=== PATIENT | female | born 1975 | race Caucasian/White ===

== ENCOUNTER 2018-12-01 11:31 | Emergency (ER) | payer BC, OTHER ==
--- NOTE | 2018-12-01 12:10 | EKG ---
Test Date: 2018-12-01 Test Time: 11:42:33 Ton Cylinder Inspector: ANTOINETTE MEASUREMENT RESULTS: Intervals: Rate: 86 WI: 142 QRSD: 80 QT: 360 QTc: 430 [place]: P: 20 WI: 142 QRS: -6 T: 15 INTERPRETIVE STATEMENTS: Normal sinus rhythm Possible Anterior infarct, age undetermined Abnormal ECG No previous ECG available for comparison Electronically Signed On 12-01-18 12:09:59 CDT by Gagan Hernandez
[2018-12-01] MEDS ORDERED: FOLIC ACID 5 MG/ML VIAL ONE (12:24)
[2018-12-01] MEDS ORDERED: NA CHLORIDE 0.9% 2,000 ML ONE (12:24)
[2018-12-01] MEDS ORDERED: NA CHLORIDE 0.9% 1,000 ML ONE (12:45)
--- NOTE | 2018-12-01 12:56 | RAD REPORT ---
EXAM DESCRIPTION: MRI - Brain Wo Cont - 12/01/2018 12:41 pm CLINICAL HISTORY: DIZZINESS, bilateral leg weakness and numbness, right arm numbness onset today COMPARISON: None. TECHNIQUE: Sagittal T1-weighted images were obtained along with axial PD, heavily T2-weighted and T2 -FLAIR images. Axial DWI and ADC mapping sequences were also obtained along with coronal heavily T2-w eighted images. Sagittal thin section 3D FLAIR sequencing performed. FINDINGS: No intracranial hemorrhage, mass or acute infarction. There is no edema or shift of midlin e structures. No extra-axial fluid collections. Bonilla-matter/white matter junction is preserved. Signa l voids are seen as a normal finding in the major intracranial vessels. No white matter signal abnorm ality seen to suspect MS, infarction or other acute intracranial process. No sella or supra sella abnormality. No globe or orbital content suspicious finding. Paranasal sinuses are clear. There may be a small amount of fluid in the mastoid air cells. No gross middle ear abnormality seen though this standard MR brain protocol study limits middle ear assessment . IMPRESSION: Negative non-contrast MRI of the Brain. No evidence for infarction, MS or other acute i ntracranial finding. Questionable minimal minimal fluid in the mastoid air cells. Middle ear assessment is limited on this examination.
[2018-12-01 13:17] LABS: Absolute Lymphocytes (CBC) 1.5 K/uL (0.7-4.9); Basophils % 0.7 % (0-1.3); Hematocrit 40.2 % (36.0-45.0); Lymphocytes % 28.3 % (15.3-44.8); MPV 9.7 fL (7.6-11.3); RBC Red Blood Cell Count 4.49 M/uL (3.86-4.86)
[2018-12-01 13:23] LABS: Protime INR 0.98
--- NOTE | 2018-12-01 13:31 | RAD REPORT ---
EXAM DESCRIPTION: RAD - Chest Single View - 12/01/2018 1:24 pm CLINICAL HISTORY: COUGH Chest pain. COMPARISON: No comparisons FINDINGS: Portable technique limits examination quality. The lungs are grossly clear. The heart is upper limit of normal in size. No displaced fractures. IMPRESSION: No acute intrathoracic process suspected.
[2018-12-01 13:44] LABS: ALT/SGPT 28 U/L (12-78); AST/SGOT 13 U/L (15-37); Albumin 4.3 g/dL (3.4-5.0); Alkaline Phosphatase 60 U/L (45-117); BUN Blood Urea Nitrogen 8 mg/dL (7-18); Bicarbonate 25 mmol/L (21-32); Bilirubin Direct < 0.1 mg/dL (0-0.2); Bilirubin Total 0.3 mg/dL (0.2-1.0); Glucose Level 89 mg/dL (74-106); Lipase 87 U/L (73-393); Magnesium 2.4 mg/dL (1.8-2.4); NT PRO-BNP 27 pg/mL (<125); Protein, Total 7.8 g/dL (6.4-8.2); Sodium Level 141 mmol/L (136-145); Troponin (Emerg Dept Use Only) < 0.02 ng/mL (0.0-0.045)
[2018-12-01] MEDS ORDERED: ASPIRIN EC 81 MG TAB PO ONE (14:28)
--- NOTE | 2018-12-01 14:28 | ER ---
Nurse's Notes [facility] Name: Cally Abbasi Age: 43 yrs Sex: Female : 1975 Arrival Date: 12/01/2018 Time: 11:32 Bed 23 Private MD: Diagnosis: Weakness;Anxiety disorder, unspecified Presentation: 12/01 11:35 Presenting complaint: Patient states: starting Friday both of my legs were getting tw2 numb, then today my right arm is numb, i have been under a lot of stress so its probably that, Dr. Larson sent me over here he called Dr. Almendarez, they gave me 81mg ASA in their office. Transition of care: patient was not received from another setting of care. Onset of symptoms was December 01, 2018. Risk Assessment: Do you want to hurt yourself or someone else? Patient reports no desire to harm self or others. Initial Sepsis Screen: Does the patient meet any 2 criteria? No. Patient's initial sepsis screen is negative. Does the patient have a suspected source of infection? No. Patient's initial sepsis screen is negative. Care prior to arrival: None. 11:35 Method Of Arrival: Ambulatory tw2 11:35 Acuity: LATISHA 3 tw2 Triage Assessment: 11:38 General: Appears in no apparent distress. obese, well groomed, Behavior is calm, tw2 cooperative, appropriate for age. Pain: Denies pain. 11:39 Neuro: Reports headache frontal area, numbness in right arm weakness in right leg and tw2 left leg since last week. 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 - Social history:: Smoking status: . - Ebola Screening: : Patient denies travel to an Ebola-affected area in the 21 days before illness onset. - Family history:: not pertinent. Screenin:58 Abuse screen: Denies threats or abuse. Denies injuries from another. Nutritional ca1 screening: No deficits noted. Tuberculosis screening: No symptoms or risk factors identified. Fall Risk IV access (20 points). Assessment: 11:43 VAN Scoring: Arm Drift: Patients demonstrates NO arm weakness. Patient is VAN Negative. tw2 Visual Disturbance: No visual disturbance noted. Aphasia: No aphasia noted. Neglect: No neglect noted. 11:58 General: Appears in no apparent distress. comfortable, Behavior is calm, cooperative, ca1 appropriate for age. Pain: Complains of pain in face and scalp Pain currently is 4 out of 10 on a pain scale. Is continuous. Neuro: Level of Consciousness is awake, alert, obeys commands, Oriented to person, place, time, situation, Appropriate for age Cover Mat Machine Operator are equal bilaterally Moves all extremities. Gait is steady, Speech is normal, Facial symmetry appears normal, Reports numbness in right leg and left leg and right arm. Cardiovascular: Heart tones S1 S2 present Capillary refill < 3 seconds Patient's skin is warm and dry. Rhythm is sinus rhythm. Respiratory: Airway is patent Respiratory effort is even, unlabored, Respiratory pattern is regular, symmetrical, Breath sounds are clear bilaterally. GI: Abdomen is round non-distended, Bowel sounds present X 4 quads. Abd is soft and non tender X 4 quads. Reports nausea. : No deficits noted. No signs and/or symptoms were reported regarding the genitourinary system. EENT: No deficits noted. No signs and/or symptoms were reported regarding the EENT system. Derm: Skin is intact, is healthy with good turgor, Skin is pink, warm \T\ dry. Musculoskeletal: Circulation, motion, and sensation intact. Capillary refill < 3 seconds, Range of motion: intact in all extremities. 13:08 Reassessment: Patient appears in no apparent distress at this time. Patient and/or ca1 family updated on plan of care and expected duration. Pain level reassessed. Patient is alert, oriented x 3, equal unlabored respirations, skin warm/dry/pink. 14:02 Reassessment: Patient appears in no apparent distress at this time. Patient and/or ca1 family updated on plan of care and expected duration. Pain level reassessed. Patient is alert, oriented x 3, equal unlabored respirations, skin warm/dry/pink. 14:57 Reassessment: Patient appears in no apparent distress at this time. Patient is alert, ca1 oriented x 3, equal unlabored respirations, skin warm/dry/pink. Vital Signs: 11:36 BP 132 / 89; Pulse 84; Resp 17; Temp 98.1(O); Pulse Ox 97% on R/A; Weight 95.25 kg (R); tw2 Height 5 ft. 4 in. (162.56 cm) (R); Pain 0/10; 12:55 BP 100 / 79; Pulse 72; Resp 17 S; Pulse Ox 98% on R/A; ca1 14:02 BP 121 / 75; Pulse 76; Resp 17 S; Pulse Ox 100% on R/A; ca1 14:57 BP 116 / 71; Pulse 72; Resp 17 S; Pulse Ox 98% on R/A; ca1 11:36 Body Mass Index 36.05 (95.25 kg, 162.56 cm) tw2 NIH Stroke Scale Scores: 12:05 NIHSS Score: 0 ca1 ED Course: 11:32 Patient arrived in ED. as 11:36 Triage completed. tw2 11:38 Arm band placed on. tw2 11:44 EKG completed in triage. Results shown to MD. tw2 11:44 EKG done, by technology infusion specialist. reviewed by Teddy Almendarez MD. jp3 11:47 Vashti Bradley, RN is Primary Nurse. ca1 11:48 Teddy Almendarez MD is Attending Physician. shruti 11:58 Patient has correct armband on for positive identification. Placed in gown. Bed in low ca1 position. Call light in reach. Side rails up X 1. manager monitoring on. Pulse ox on. NIBP on. Warm blanket given. 11:58 No provider procedures requiring assistance completed. ca1 12:22 Patient moved to MRI via wheelchair. ka 12:30 Brain Wo Cont In Process Unspecified. EDMS 13:00 Initial lab(s) drawn, by ED staff, sent to lab. Inserted saline lock: 20 gauge in right ca1 antecubital area, using aseptic technique. ,using aseptic technique. by LAUREL Shahid Blood collected. 13:24 XRAY Chest (1 view) In Process Unspecified. EDMS 13:30 IV discontinued, intact, bleeding controlled, No redness/swelling at site. Pressure jp3 dressing applied, IV DC'd due to IV sitting within vein valve. Medications would only run if finger was placed down on top of the vein. Patient OK'd having another IV placed. 13:45 Inserted saline lock: 22 gauge in left antecubital area, using aseptic technique. jp3 Patient maintains SpO2 saturation greater than 95% on room air. 14:27 Artemio Marin MD is Referral Physician. shruti 14:57 IV discontinued, intact, bleeding controlled, No redness/swelling at site. Pressure ca1 dressing applied. 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 ca1 Output: 14:30 Urine: 130ml; Total: 130ml. ca1 Outcome: 14:26 Discharge ordered by . shruti 14:58 Discharged to home ambulatory, with family. ca1 14:58 Condition: stable 14:58 Discharge instructions given to patient, Instructed on discharge instructions, follow up and referral plans. medication usage, Demonstrated understanding of instructions, follow-up care, medications, Prescriptions given X 2. 14:58 Patient left the ED. ca1 NIH Stroke Scale - NIH Stroke Score Date: 12/01/2018 Time: 12:05 Total Score = 0 1a. Level of Consciousness (LOC) - 0(Alert) 1b. Level of Consciousness (LOC) (Year \T\ Age) - 0(Both) 1c. LOC Commands (Open \T\ Closes Eyes/Police Superintendent) - 0(Both) 2. Best Gaze (Lateral Gaze Paresis) - 0(Normal) 3. Visual Field Loss - 0(No visual loss) 4. Facial Palsy - 0(Normal) 5a. Left Arm: Motor (10-second hold) - 0(No drift) 5b. Right Arm: Motor (10-second hold) - 0(No drift) 6a. Left Leg: Motor (5-second hold - always test supine) - 0(No drift) 6b. Right Leg: Motor (5-second hold - always test supine) - 0(No drift) 7. Limb Ataxia (finger/nose \T\ heel/marcial - test with eyes open) - 0(Absent) 8. Sensory Loss (pinprick arms/legs/face) - 0(Normal) 9. Best Language: Aphasia (description/naming/reading) - 0(No aphasia) 10. Dysarthria (speech clarity - read or repeat words) - 0(Normal) 11. Extinction and Inattention (visual/tactile/auditory/spatial/personal) - 0(No abnormality) Initials: ca1 Signatures: Dispatcher [employer] EDTeddy Nunes MD MD cha Martinez, Amelia as Aguilera, Kandace Choudhury RN RN tw2 Milton Cuevas jp3 Vashti Bradley RN RN ca1 Corrections: (The following items were deleted from the chart) 11:39 11:38 PMHx: Mineirs disease; tw2 tw2
--- NOTE | 2018-12-01 14:29 | EDPHYS ---
Physician Documentation [facility] Name: Cally Abbais Age: 43 yrs Sex: Female : 1975 Arrival Date: 12/01/2018 Time: 11:32 Bed 23 Private MD: LAUREL Physician Teddy Almendarez HPI: 12/01 13:06 This 43 yrs old Female presents to ER via Ambulatory with complaints of shruti Numbness Of Arm. 13:06 The patient or guardian complains of decreased range of motion, weakness. The shruti complaints affect the right bicep, dorsal aspect of right forearm, right tricep and palmar aspect of right forearm. Context: The problem was sustained at home. Onset: The symptoms/episode began/occurred 1 day(s) ago. Treatment prior to arrival includes: no previous treatment. Modifying factors: The symptoms are alleviated by nothing. the symptoms are aggravated by movement. Associated signs and symptoms: The patient has no apparent associated signs or symptoms. Severity of symptoms: At their worst the symptoms were mild, moderate, in the emergency department the symptoms are unchanged. The patient has not experienced similar symptoms in the past. 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 - Social history:: Smoking status: . - Ebola Screening: : Patient denies travel to an Ebola-affected area in the 21 days before illness onset. - Family history:: not pertinent. ROS: 13:06 Constitutional: Negative for fever, chills, and weight loss, Eyes: Negative for injury, shruti pain, redness, and discharge, ENT: Negative for injury, pain, and discharge, Neck: Negative for injury, pain, and swelling, Cardiovascular: Negative for chest pain, palpitations, and edema, Respiratory: Negative for shortness of breath, cough, wheezing, and pleuritic chest pain, Abdomen/GI: Negative for abdominal pain, nausea, vomiting, diarrhea, and constipation, Back: Negative for injury and pain, : Negative for injury, bleeding, discharge, and swelling, Skin: Negative for injury, rash, and discoloration, Psych: Negative for depression, anxiety, suicide ideation, homicidal ideation, and hallucinations, Allergy/Immunology: Negative for hives, rash, and allergies, Endocrine: Negative for neck swelling, polydipsia, polyuria, polyphagia, and marked weight changes, Hematologic/Lymphatic: Negative for swollen nodes, abnormal bleeding, and unusual bruising. 13:06 MS/extremity: Positive for paresthesias. Exam: 13:06 Constitutional: This is a well developed, well nourished patient who is awake, alert, shruti and in no acute distress. Head/Face: Normocephalic, atraumatic. Eyes: Pupils equal round and reactive to light, extra-ocular motions intact. Lids and lashes normal. Conjunctiva and sclera are non-icteric and not injected. Cornea within normal limits. Periorbital areas with no swelling, redness, or edema. ENT: Nares patent. No nasal discharge, no septal abnormalities noted. Tympanic membranes are normal and external auditory canals are clear. Oropharynx with no redness, swelling, or masses, exudates, or evidence of obstruction, uvula midline. Mucous membranes moist. Neck: Trachea midline, no thyromegaly or masses palpated, and no cervical lymphadenopathy. Supple, full range of motion without nuchal rigidity, or vertebral point tenderness. No Meningismus. Chest/axilla: Normal chest wall appearance and motion. Nontender with no deformity. No lesions are appreciated. Cardiovascular: Regular rate and rhythm with a normal S1 and S2. No gallops, murmurs, or rubs. Normal PMI, no JVD. No pulse deficits. Respiratory: Lungs have equal breath sounds bilaterally, clear to auscultation and percussion. No rales, rhonchi or wheezes noted. No increased work of breathing, no retractions or nasal flaring. Abdomen/GI: Soft, non-tender, with normal bowel sounds. No distension or tympany. No guarding or rebound. No evidence of tenderness throughout. Back: No spinal tenderness. No costovertebral tenderness. Full range of motion. Skin: Warm, dry with normal turgor. Normal color with no rashes, no lesions, and no evidence of cellulitis. Neuro: Awake and alert, GCS 15, oriented to person, place, time, and situation. Cranial nerves II-XII grossly intact. Motor strength 5/5 in all extremities. Sensory grossly intact. Cerebellar exam normal. Normal gait. Psych: Awake, alert, with orientation to person, place and time. Behavior, mood, and affect are within normal limits. 13:06 Musculoskeletal/extremity: Circulation is intact in all extremities. the right arm Compartment Syndrome exam of affected extremity: is normal. DVT Exam: No signs of deep vein thrombosis. no pain, no swelling, no tenderness, negative Homans' sign noted on exam, no appreciated bluish discoloration, no erythema, no increased warmth. Vital Signs: 11:36 BP 132 / 89; Pulse 84; Resp 17; Temp 98.1(O); Pulse Ox 97% on R/A; Weight 95.25 kg (R); tw2 Height 5 ft. 4 in. (162.56 cm) (R); Pain 0/10; 12:55 BP 100 / 79; Pulse 72; Resp 17 S; Pulse Ox 98% on R/A; ca1 14:02 BP 121 / 75; Pulse 76; Resp 17 S; Pulse Ox 100% on R/A; ca1 14:57 BP 116 / 71; Pulse 72; Resp 17 S; Pulse Ox 98% on R/A; ca1 11:36 Body Mass Index 36.05 (95.25 kg, 162.56 cm) tw2 NIH Stroke Scale Scores: 12:05 NIHSS Score: 0 ca1 MDM: 11:48 Patient medically screened. [facility] 13:11 Data reviewed: vital signs, nurses notes, lab test result(s), EKG, radiologic studies, [facility] MRI, plain films. 12/01 12:00 Order name: Basic Metabolic Panel; Complete Time: 14:23 [facility] 12/01 12:00 Order name: CBC with Diff; Complete Time: 14:23 [facility] 12/01 12:00 Order name: LFT's; Complete Time: 14:23 [facility] 12/01 12:00 Order name: Magnesium; Complete Time: 14:23 [facility] 12/01 12:00 Order name: NT PRO-BNP; Complete Time: 14:23 [facility] 12/01 12:00 Order name: PT-INR; Complete Time: 14:23 [facility] 12/01 12:00 Order name: Troponin (emerg Dept Use Only); Complete Time: 14:23 [facility] 12/01 12:00 Order name: XRAY Chest (1 view); Complete Time: 14:23 [facility] 12/01 12:00 Order name: Lipase; Complete Time: 14:23 [facility] 12/01 12:23 Order name: Brain Wo Cont; Complete Time: 13:05 EDMS 12/01 14:06 Order name: Urine Dipstick--Ancillary (enter results) 12/01 14:06 Order name: Urine --Ancillary (enter results) 12/01 12:00 Order name: EKG; Complete Time: 12:01 [facility] 12/01 12:00 Order name: Cardiac monitoring; Complete Time: 12:06 [facility] 12/01 12:00 Order name: EKG - Nurse/Tech; Complete Time: 12:06 [facility] 12/01 12:00 Order name: IV Saline Lock; Complete Time: 13:07 [facility] 12/01 12:00 Order name: Labs collected and sent; Complete Time: 13:07 [facility] 12/01 12:00 Order name: O2 Per Protocol; Complete Time: 12:06 [facility] 12/01 12:00 Order name: O2 Sat Monitoring; Complete Time: 12: [facility] 12/01 12:00 Order name: Urine Dipstick-Ancillary (obtain specimen); Complete Time: 14:01 [facility] 12/01 12:00 Order name: Urine Test (obtain specimen); Complete Time: 14:01 [facility] Administered Medications: 13:01 Drug: NS 0.9% 1000 ml Route: IV; Rate: 1 bolus; Site: right antecubital; ca1 14:30 Follow up: Response: No adverse reaction; IV Status: Completed infusion ca1 13:01 Drug: NS 0.9% 1000 ml Route: IV; Rate: 1 bolus; Site: right antecubital; ca1 14:30 Follow up: Urine output 130 ml; Response: No adverse reaction; IV Status: Completed ca1 infusion; IV Intake: 1000ml 13:02 Drug: foLIC Acid 1 mg Route: IVPB; Site: right antecubital; ca1 14:30 Follow up: Response: No adverse reaction; IV Status: Completed infusion ca1 14:30 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 Impression: Weakness, Anxiety disorder, unspecified. - Condition is Stable. - Discharge Instructions: Weakness, Weakness, [id number], Aspirin and Your Heart. - Prescriptions for Vitamin 27- 0.8 mg Oral Tablet - take 1 tablet by ORAL route once daily; 30 tablet. Xanax 0.5 mg Oral Tablet - take 1 tablet by ORAL route every 8 hours As needed; 20 tablet. - Medication Reconciliation Form, Thank You Letter, Antibiotic Education, Prescription Opioid Use form. - Follow up: Private Physician; When: 2 - 3 days; Reason: Recheck today's complaints, Continuance of care, Re-evaluation by your physician. Follow up: Artemio Marin MD; When: 2 - 3 days; Reason: Recheck today's complaints, Continuance of care, Re-evaluation by your physician. - Problem is new. - Symptoms have improved. NIH Stroke Scale - NIH Stroke Score Date: 12/01/2018 Time: 12:05 Total Score = 0 1a. Level of Consciousness (LOC) - 0(Alert) 1b. Level of Consciousness (LOC) (Year \T\ Age) - 0(Both) 1c. LOC Commands (Open \T\ Closes Eyes/Sql Developer) - 0(Both) 2. Best Gaze (Lateral Gaze Paresis) - 0(Normal) 3. Visual Field Loss - 0(No visual loss) 4. Facial Palsy - 0(Normal) 5a. Left Arm: Motor (10-second hold) - 0(No drift) 5b. Right Arm: Motor (10-second hold) - 0(No drift) 6a. Left Leg: Motor (5-second hold - always test supine) - 0(No drift) 6b. Right Leg: Motor (5-second hold - always test supine) - 0(No drift) 7. Limb Ataxia (finger/nose \T\ heel/marcial - test with eyes open) - 0(Absent) 8. Sensory Loss (pinprick arms/legs/face) - 0(Normal) 9. Best Language: Aphasia (description/naming/reading) - 0(No aphasia) 10. Dysarthria (speech clarity - read or repeat words) - 0(Normal) 11. Extinction and Inattention (visual/tactile/auditory/spatial/personal) - 0(No abnormality) Initials: ca1 Signatures: Dispatcher [employer] EDTeddy Nunes MD MD cha Wise, Tara, RN RN tw2 Acob, Vashti, RN RN ca1 Corrections: (The following items were deleted from the chart) 11:39 11:38 PMHx: Mineirs disease; tw2 tw2 12:23 12:01 MR STROKE PROTOCOL+MRI.[email or web address].CHRISTINE ordered. [facility] 14:27 14:26 12/01/2018 14:26 Discharged to Home. Impression: Weakness. Condition is shruti Stable. Forms are Medication Reconciliation Form, Thank You Letter, Antibiotic Education, Prescription Opioid Use. Follow up: Private Physician; When: 2 - 3 days; Reason: Recheck today's complaints, Continuance of care, Re-evaluation by your physician. Problem is new. Symptoms have improved. [facility] 14:38 14:27 12/01/2018 14:26 Discharged to Home. Impression: Weakness. Condition is shruti Stable. Forms are Medication Reconciliation Form, Thank You Letter, Antibiotic Education, Prescription Opioid Use. Follow up: Private Physician; When: 2 - 3 days; Reason: Recheck today's complaints, Continuance of care, Re-evaluation by your physician. Follow up: Artemio Marin; When: 2 - 3 days; Reason: Recheck today's complaints, Continuance of care, Re-evaluation by your physician. Problem is new. Symptoms have improved. [facility] 14:58 14:38 12/01/2018 14:26 Discharged to Home. Impression: Weakness; Anxiety ca1 disorder, unspecified. Condition is Stable. Discharge Instructions: Weakness, Weakness, [id number], Aspirin and Your Heart. Prescriptions for Vitamin 27-0.8 mg Oral Tablet - take 1 tablet by ORAL route once daily; 30 tablet. and Forms are Medication Reconciliation Form, Thank You Letter, Antibiotic Education, Prescription Opioid Use. Follow up: Private Physician; When: 2 - 3 days; Reason: Recheck today's complaints, Continuance of care, Re-evaluation by your physician. Follow up: Artemio Marin; When: 2 - 3 days; Reason: Recheck today's complaints, Continuance of care, Re-evaluation by your physician. Problem is new. Symptoms have improved. shruti
[2018-12-01 16:11] VITALS: TEMP 98.1
[2018-12-01 16:15] VITALS: BP 116/71; O2SAT 98
[2018-12-01 16:28] LABS: Urine Blood NEGATIVE (NEG); Urine Glucose NEGATIVE (NEG); Urine Protein NEGATIVE (NEG); Urine Specific Gravity 1.015 (1.005-1.030)
== END 2018-12-01 14:58 | disposition home or self-care (01) ==
LOC: ER 11:31
DX: F41.9 Anxiety disorder, unspecified (principal); R53.1 Weakness; H81.09 Meniere's disease, unspecified ear; Z88.8 Allergy status to other drugs, medicaments and biological substances
CPT/HCPCS: 96365; 93005; 85025; 80048; 36415; 83735; 81025; 85610; 80076; 81003; 84484; 83690; 83880; 71045; 70551; 99285; J7030 ×2